=== PATIENT | male | born 1980 | race Caucasian/White ===

== ENCOUNTER 2017-01-13 16:47 | Emergency (ER) | payer OTHER ==
[2017-01-13 17:36] VITALS: BP 137/68
[2017-01-13] MEDS ORDERED: Benzonatate CAP* 100 MG PO ONE (18:08)
[2017-01-13] MEDS ORDERED: Amoxicillin/Clavulanate TAB* 500 MG PO ONE (18:08)
--- NOTE | 2017-01-13 18:21 | UC ---
Respiratory Complaint HPI - HPI Summary HPI Summary: Patient presents with complaints of two week onset chest congestion, coughing that he states has become worse in the last 24 hours, with associated fever, and chills. He states he is worried he has the flu and has a small child and a home. He denies chest pain, abdominal pain, nausea, vomiting or diarrhea, recent travel or ill contacts. - History of Current Complaint Chief Complaint: UCGeneralIllness Stated Complaint: COUGH Time Seen by Provider: 01/13/17 18:00 Hx Obtained From: Patient Onset/Duration: Gradual Onset, Lasting Weeks Timing: Constant Severity Initially: Moderate Severity Currently: Moderate Character: Cough: Nonproductive Aggravating Factors: Deep Breaths, Recumbent Position Alleviating Factors: Upright Position, Spontaneous Resolution Associated Signs And Symptoms: Positive: Fever, Chills, URI, Nasal Congestion - Risk Factors Pulmonary Embolism Risk Factors: Negative Cardiac Risk Factors: Negative Pseudomonas Risk Factors: Negative Tuberculosis Risk Factors: Negative - Allergies/Home Medications Allergies/Adverse Reactions: Allergies Allergy/AdvReac Type Severity Reaction Status Date / Time Sulfa Antibiotics Allergy Hives Verified 01/13/17 17:35 Home Medications: Home Medications Acetaminophen TAB* [Tylenol TAB*] 650 mg PO Q4HR PRN 01/13/17 [History Confirmed 01/13/17] Ibuprofen TAB* [Advil TAB*] 200 mg PO Q4H PRN 01/13/17 [History Confirmed ] PMH/Surg Hx/FS Hx/Imm Hx Previously Healthy: Yes - Surgical History Surgical History: None - Family History Known Family History: Positive: None - Social History Occupation: Employed Full-time Lives: With Family Alcohol Use: Occasionally Substance Use Type: None Smoking Status (MU): Never Smoked Tobacco Review of Systems Constitutional: Fever, Chills, Fatigue Skin: Negative Eyes: Negative ENT: Negative Respiratory: Cough Cardiovascular: Negative Gastrointestinal: Negative Genitourinary: Negative Motor: Negative Neurovascular: Negative Musculoskeletal: Negative Neurological: Negative Psychological: Negative All Other Systems Reviewed And Are Negative: Yes Physical Exam Triage Information Reviewed: Yes Appearance: Well-Appearing Vital Signs: Initial Vital Signs Temp 100.5 F 01/13/17 17:30 Pulse 101 01/13/17 17:30 Resp 18 01/13/17 17:30 BP 137/68 01/13/17 17:30 Pulse Ox 99 01/13/17 17:30 Vital Signs Reviewed: Yes Eye Exam: Normal ENT Exam: Normal Neck exam: Normal Neck: Positive: 1 Respiratory Exam: Normal Cardiovascular Exam: Normal Abdominal Exam: Normal Musculoskeletal Exam: Normal Neurological Exam: Normal Psychological Exam: Normal Skin Exam: Normal UC Diagnostic Evaluation - Laboratory O2 Sat by Pulse Oximetry: 99 Respiratory Course/Dx - Course Course Of Treatment: Patient presents with two week onset URI, that became much worse yesterday with fever, chills and cough. Influenza was negative and he was treated with Agmentin and Tesslaon for Bronchitis. - Differential Dx/Diagnosis Differential Diagnosis/HQI/PQRI: Bronchitis Provider Diagnoses: bronchitis Discharge - Discharge Plan Condition: Stable Disposition: HOME Prescriptions: Amoxicillin/Clavulanate TAB* [Augmentin TAB 500 mg*] 500 mg PO BID #20 tab Benzonatate [TESSALON 200 MG CAP] 200 mg PO TID PRN #14 cap PRN Reason: Cough Patient Education Materials: Acute Bronchitis (ED) Referrals: Bryan Arboleda MD [Primary Care Provider] -
== END 2017-01-13 18:41 | disposition home or self-care (01) ==
LOC: UCEAST 16:47
DX: J40 Bronchitis, not specified as acute or chronic (principal); Z88.2 Allergy status to sulfonamides
CPT/HCPCS: 87502; 99212; A9270-GY; G0463